=== PATIENT | female | born 1990 | race Caucasian/White ===

== ENCOUNTER 2022-04-26 09:38 | Emergency (ER) | payer OTHER, SELFPAY ==
--- NOTE | ~2022-04-26 | XR_ITS ---
EXAMINATION: XR finger 1st RT min 2V DATE: 04/26/2022 09:58 INDICATION: Slammed distal tip of the right dominant cord or TECHNIQUE: Dorsal palmar, lateral and 2 oblique views of the right first digit were obtained COMPARISON: None FINDINGS: Minimally displaced comminuted fractures of the tuft of the right first distal phalanx. Alignment rem ains near-anatomic. No other fractures identified. Joint spaces are normal. IMPRESSION: 1. Minimally displaced comminuted tuft fracture of the right first distal phalanx. Correlate clinical ly for associated nailbed injury which if present would render this equivalent of an open/compound fr acture at increased risk of developing osteomyelitis. Reviewed, dictated and finalized at location A. IMPRESSION: 1. Minimally displaced comminuted tuft fracture of the right first distal phala nx. Correlate clinically for associated nailbed injury which if present would r dean this equivalent of an open/compound fracture at increased risk of develop ing osteomyelitis.
[2022-04-26 09:48] VITALS: BP 137/72; PULSE 90; RESP 16; TEMP 37.1; O2SAT 99
--- NOTE | 2022-04-26 10:10 | ED.UPPEXIN ---
HPI - Extremity Injury (Upper) General Chief Complaint: Extremity Injury, Upper Stated Complaint: right thumb injury Time Seen by Provider: 04/26/22 10:10 Source: patient Mode of arrival: ambulatory Limitations: no limitations History of Present Illness HPI narrative: 32 yo F presents with c/o pain and swelling to R thumb. Slammed thumb in car door 3 days ago. States getting stiff and more painful . Taking aleve. concerned for fracture. No open wound. All systems reviewed and negative except as noted above. Related Data Home Medications Medication Instructions Recorded Confirmed No Home Medications 04/26/22 04/26/22 Allergies Allergy/AdvReac Type Severity Reaction Status Date / Time DIPHENHYDRAMINE HCL Allergy Unknown BLACK Uncoded 04/26/22 10:23 FUSSY TONGUE AFTER TAKING BENADRYL TABLETS MOLD Allergy Unknown Other Uncoded 04/26/22 10:23 Review of Systems Review of Systems: CONSTITUTIONAL: Denies fever, chills, or sweats. EYES: Denies visual changes, redness, or discharge. ENT: Denies rhinorrhea, congestion, sore throat, or otalgia. CARDIOVASCULAR: Denies chest pain, palpitations, or edema. RESPIRATORY: Denies cough or dyspnea. GASTROINTESTINAL: Denies abdominal pain, nausea, vomiting, or diarrhea. GENITOURINARY: Denies dysuria or hematuria. SKIN: Denies rash or itching. MUSCULOSKELETAL: Reports pain and swelling to distal aspect R thumb. NEUROLOGIC: Denies headache, numbness, or weakness. PSYCHIATRIC: Denies anxiety or depression. All other systems reviewed are negative, except as documented in HPI. [facility] Family History Family History (Updated 09/26/17 @ 13:47 by DOCTOR UNKNOWN) Mother Family history of osteoporosis Family history of arthritis Father Asthma Family history of cardiovascular disease Family history of chronic obstructive pulmonary disease Family history of lung disease Grandparent Family history of cardiovascular disease Cerebrovascular accident Family history of lung disease Social History Social History Smoking status: Never smoker Alcohol intake: current Comments At time of signature, agree with nursing past medical, surgical, social and family history. There is no relevant family history pertinent to the presenting complaint. Exam Narrative: GENERAL: This is a well-nourished, well-developed patient, in no apparent distress. HEAD: normocephalic, atraumatic. EYES: PERRL. Sclera clear/white. Vision is grossly intact. EARS: External ears normal NOSE: External nose normal NECK: Neck supple, non-tender without lymphadenopathy, masses or thyromegaly. CARDIOVASCULAR: Regular rate and rhythm without murmurs, gallops, or rubs. RESPIRATORY: Clear to auscultation. Breath sounds equal bilaterally. No wheezes, rales, or rhonchi. SKIN: warm, Dry, intact with no suspicious lesions or rash, good texture and turgor. NEURO: awake, alert, and oriented to person, place and time. There were no obvious focal neurologic abnormalities. EXTREMITIES: No joint tenderness, effusion, or edema noted. tenderness to tuft of R thumb with swelling. No open wound or damage to nail. Course Course Level of Care: Express Care Visit Vital Signs Vital signs: Vital Signs Temperature 37.1 C 04/26/22 09:48 Pulse Rate 90 04/26/22 09:48 Respiratory Rate 16 04/26/22 09:48 Blood Pressure 137/72 04/26/22 09:48 Pulse Oximetry 99 04/26/22 09:48 Oxygen Delivery Room Air 04/26/22 09:48 Temperature 37.1 C 04/26/22 09:48 Pulse Rate 90 04/26/22 09:48 Respiratory Rate 16 04/26/22 09:48 Blood Pressure 137/72 04/26/22 09:48 Pulse Oximetry 99 04/26/22 09:48 Oxygen Delivery Room Air 04/26/22 09:48 Reviewed MDM - Extremity Injury (Upper) MDM Narrative Medical decision making narrative: Patient is aware of diagnosis, understands and agrees to treatment plan. Anticipatory guidance given. Patient agrees to follow-up as dire
== END 2022-04-26 10:20 | disposition home or self-care (01) ==
PROVIDERS: Emergency Provider Nurse Practitioner Family; PCP Student in an Organized Health Care Education/Training Program
DX: S62.521A Displaced fracture of distal phalanx of right thumb, initial encounter for closed fracture (principal); W23.0XXA Caught, crushed, jammed, or pinched between moving objects, initial encounter
CPT/HCPCS: 29130; 73140; 99214; G0463